=== PATIENT | female | born 1955 | race American Indian/Alaskan Native ===

== ENCOUNTER 2016-07-10 14:11 | Day surgery (SDC) | payer OTHER, SELFPAY ==
--- NOTE | 2016-07-10 14:41 | Anesthesia Consultation ---
Anesthesia Consult and Med Hx Date of service: 07/10/16 - Airway Anesthetic Teeth Evaluation: Dentures ROM Head & Neck: Adequate Mental/Hyoid Distance: Adequate Mallampati Class: Class I Intubation Access Assessment: Good - Pulmonary Exam CTA: Yes - Cardiac Exam Cardiac Exam: RRR - Pre-Operative Health Status ASA Pre-Surgery Classification: ASA2 Proposed Anesthetic Plan: General - Pulmonary Hx Asthma: No COPD: No Hx Pneumonia: Yes - Cardiovascular System Hx Hypertension: Yes - Central Nervous System Hx Psychiatric Problems: No - Endocrine Hx End Stage Renal Disease: No Hx Non-Insulin Dependent Diabetes: Yes - Additional Comments Anesthesia Medical History Comments: No previous anesthesia complications.
--- NOTE | 2016-07-10 14:42 | Anesthesia Day of Surgery ---
Anesthesia Day of Surgery - Day of Surgery Patient Examined: Yes Patient H&P Reviewed: Yes Patient is NPO: Yes
[2016-07-10] MEDS ORDERED: NACL 0.9% 1000 ML 1,000 ML IV SCH (15:00)
[2016-07-10] MEDS ORDERED: WATER FOR IRRIG STERILE IR ONE (16:22)
[2016-07-10] MEDS ORDERED: DIPRIVAN 10 MG/ML IV ONE ×2 (16:37)
--- NOTE | 2016-07-10 17:08 | Operative Report ---
Operative Report Operative Report: Date of procedure: 07/10/2016 Procedure: Colonoscopy Attending physician: Casimiro Marinelli MD Instrumentation Manager: Casimiro Marinelli MD Indication: Colorectal cancer screening Consent: Informed consent was obtained after advising the patient and family regarding nature of this procedure, its indications, potential benefits as well as possible complications including but not limited to bleeding perforation and adverse reaction to medication, infection as well as other cardiopulmonary complications. An informed written and verbal consent was then obtained after due opportunity was provided for questions and answers. Monitoring: Patient was monitored continuously with pulse oximetry and electrocardiographic recordings as well as blood pressure recordings. Vital signs remained stable throughout this procedure with no untoward events. Preoperative assessment: Patient was assessed immediately prior to this procedure for capacity to tolerate monitored anesthesia care and moderate sedation as well as general anesthesia. Patient's ASA classification is 2, Mallampati class is 2, Hyomental distance is 3. Instrument: PEPperPRINTn videocolonoscope Medications: Propofol given intravenously in divided doses. For details please refer to anesthesia records. Description of procedure: Patient was placed in the left lateral decubitus position after achieving sedation, a digital rectal examination was performed following which the colonoscope was introduced into the anal verge and advanced to the cecum which was identified by the cecal valve, the appendiceal orifice, as well as by the cecal strap and direct transillumination. The colonoscope was subsequently withdrawn with careful inspection of all mucosal surfaces. Patient tolerated this procedure well and was subsequently taken to the recovery room. The following findings were noted. Findings: Patient had substantial retained stool seen in various sections of the colon with densely adherent thick liquid stool which was irrigated as much as possible to optimize visualization of the colon. There was scattered diverticula in the sigmoid descending and ascending colon. The rest of the colon was normal. On the retroflexed view at the anal verge, patient had internal hemorrhoids. Impression: Colonic diverticulosis. Retained stool. Internal hemorrhoids. Plan: High-fiber diet. Consider repeat colonoscopy less than 10 years from this examination given that patient had significant retained stool in the colon.
--- NOTE | 2016-07-10 17:09 | Discharge Summary ---
Short Stay Discharge Plan Activity: advance as tolerated Weight Bearing Status: Weight Bear as Tolerated Diet: regular
--- NOTE | 2016-07-10 17:20 | Post Anesthesia Evaluation ---
- Post Anesthesia Evaluation Patient Participated: Yes Airway Patent: Yes Stable Respiratory Function: Yes Temp > 96.8F: Yes Pain Manageable: Yes Adequeate Hydration: Yes Anesthesia Complications: No Block Receding Appropriately: Not Applicable
[2016-07-10 17:35] VITALS: BP 133/97
== END 2016-07-10 14:12 | disposition home or self-care (01) ==
LOC: GIO 14:11
PROVIDERS: ATTEND Internal Medicine Gastroenterology
DX: Z12.11 Encounter for screening for malignant neoplasm of colon (principal); K57.30 Diverticulosis of large intestine without perforation or abscess without bleeding; K64.8 Other hemorrhoids; F41.9 Anxiety disorder, unspecified; E11.9 Type 2 diabetes mellitus without complications; I10 Essential (primary) hypertension; M10.9 Gout, unspecified; Z87.01 Personal history of pneumonia (recurrent); Z79.899 Other long term (current) drug therapy; Z79.84 Long term (current) use of oral hypoglycemic drugs; Z80.3 Family history of malignant neoplasm of breast; Z83.3 Family history of diabetes mellitus
CPT/HCPCS: 82962; G0121; J2704; J7030

== ENCOUNTER 2016-07-31 09:21 | Outpatient (CLI) | payer OTHER ==
--- NOTE | 2016-07-31 15:22 | Mammography Report ---
BILATERAL DIGITAL SCREENING MAMMOGRAM with CAD: 07/31/16 09:21:00 CLINICAL: Routine screening. COMPARISON:None available. FINDINGS: The breasts are almost entirely fatty. No mass, architectural distortion or suspicious calcifications. IMPRESSION: No mammographic evidence of malignancy. BI-RADS CATEGORY: 1 - - Negative RECOMMENDATION: Routine mammographic screening in one year. COMMENT: Patient follow-up letters are generated by our [employer] application.
== END 2016-07-31 09:22 | disposition home or self-care (01) ==
LOC: SPVWC 09:21
PROVIDERS: ATTEND Advanced Practice Midwife
DX: Z12.31 Encounter for screening mammogram for malignant neoplasm of breast (principal)
CPT/HCPCS: 77067; G0202

== ENCOUNTER 2017-01-19 10:23 | Outpatient (CLI) | payer OTHER ==
--- NOTE | 2017-01-19 10:57 | XRay Report ---
LEFT HIP RADIOGRAPHS INDICATION: Hip pain. COMPARISON: None similar. FINDINGS: AP pelvic radiograph with frog-leg projection of the left hip demonstrate normal femoral head contours. Severe left and moderate right hip joint space narrowing though suspected. Mild left acetabular sclerosis and subchondral cyst as well. Mild right acetabular degenerative spurring. Approximately 4.7 x 3.2 cm mid pelvic possible fibroid calcifications. Mild SI joint sclerosis. Nonobstructive bowel gas pattern. Normal imaged lower lumbar spine. Possible osteopenia. CONCLUSION: Severe left and moderate right hip osteoarthrosis with few other findings, including fibroids, as above. Thank you for the opportunity to participate in this patient's care.
== END 2017-01-19 10:24 | disposition home or self-care (01) ==
LOC: SPVIMAG 10:23
PROVIDERS: ATTEND Orthopaedic Surgery
DX: D36.7 Benign neoplasm of other specified sites (principal); M16.0 Bilateral primary osteoarthritis of hip; M25.852 Other specified joint disorders, left hip

== ENCOUNTER 2018-09-10 08:24 | Outpatient (CLI) | payer MEDICARE ==
--- NOTE | 2018-09-10 11:15 | Mammography Report ---
BILATERAL DIGITAL SCREENING MAMMOGRAM with CAD: 09/10/18 08:24:00 CLINICAL: Routine screening. COMPARISON:07/31/16 FINDINGS: The breasts are almost entirely fatty. No mass, architectural distortion or suspicious calcifications. IMPRESSION: No mammographic evidence of malignancy. BI-RADS CATEGORY: 1 - - Negative RECOMMENDATION: Routine mammographic screening in one year. COMMENT: Patient follow-up letters are generated by our [employer] application.
== END 2018-09-10 08:25 | disposition home or self-care (01) ==
LOC: SPVWC 08:24
PROVIDERS: ATTEND Family Medicine
DX: Z12.31 Encounter for screening mammogram for malignant neoplasm of breast (principal); E66.9 Obesity, unspecified; E11.9 Type 2 diabetes mellitus without complications; I10 Essential (primary) hypertension
CPT/HCPCS: 77067

== ENCOUNTER 2020-01-18 13:24 | Outpatient (CLI) | payer MEDICARE ==
--- NOTE | 2020-01-19 08:33 | Mammography Report ---
DIGITAL SCREENING MAMMOGRAM WITH CAD, 01/18/2020 INDICATION: Routine screening mammography. TECHNIQUE: Digital bilateral 2D mammography was obtained in the craniocaudal and mediolateral obliq ue projections. This examination was interpreted with the benefit of Computer-Aided Detection analysi s. COMPARISON: 09/10/2018, 07/31/2016 FINDINGS: Breast Density: The breasts are almost entirely fatty. There is no evidence of dominant mass, suspicious calcifications or architectural distortion in eithe r breast. IMPRESSION: Follow up recommendation: Routine yearly BI-RADS Category 1: Negative. A "normal" or negative report should not discourage follow up or biopsy of a clinically significant f inding. A written summary of these findings will be mailed to the patient. The patient will be entered into a mammography reporting system which will generate a reminder letter for the patient's next appointmen t at the appropriate interval. The [employer] recommends yearly mammograms starting at age 40 and continuing as l keyla as a woman is in good health. Breast MRI is recommended for women with an approximate 20-25% or greater lifetime risk of breast cancer, including women with a strong family history of breast or ova angelia cancer or who have been treated for Hodgkin's disease. Signer Name: Abdirashid Sorensen MD Signed: 01/19/2020 8:29 AM Workstation Name: [email or web address]
== END 2020-01-18 13:25 | disposition home or self-care (01) ==
LOC: SPVWC 13:24
PROVIDERS: ATTEND Family Medicine
DX: Z12.31 Encounter for screening mammogram for malignant neoplasm of breast (principal)
CPT/HCPCS: 77067

== ENCOUNTER 2021-01-18 08:35 | Outpatient (CLI) | payer MEDICARE ==
--- NOTE | 2021-01-18 10:17 | Mammography Report ---
DIGITAL SCREENING MAMMOGRAM WITH CAD, 01/18/2021 CLINICAL INFORMATION / INDICATION: Routine screening mammography. SCREENING MAMMOGRAM TECHNIQUE: Digital bilateral 2D mammography was obtained in the craniocaudal and mediolateral obliqu e projections. This examination was interpreted with the benefit of Computer-Aided Detection analysis . COMPARISON: 01/18/2020, 07/31/2016 FINDINGS: Breast Density: The breasts are almost entirely fatty. No dominant mass, suspicious calcifications, or architectural distortion in either breast. IMPRESSION: No mammographic evidence of malignancy. Follow up recommendation: Routine yearly BI-RADS Category 1: Negative. A "normal" or negative report should not discourage follow up or biopsy of a clinically significant f inding. A written summary of these findings will be mailed to the patient. The patient will be entered into a mammography reporting system which will generate a reminder letter for the patient's next appointmen t at the appropriate interval. The [employer] recommends yearly mammograms starting at age 40 and continuing as l keyla as a woman is in good health. Breast MRI is recommended for women with an approximate 20-25% or greater lifetime risk of breast cancer, including women with a strong family history of breast or ova angelia cancer or who have been treated for Hodgkin's disease. Signer Name: Cam Parkre MD Signed: 01/18/2021 10:12 AM Workstation Name: [id number]
== END 2021-01-18 08:36 | disposition home or self-care (01) ==
LOC: SPVWC 08:35
PROVIDERS: ATTEND Family Medicine
DX: Z12.31 Encounter for screening mammogram for malignant neoplasm of breast (principal)
CPT/HCPCS: 77067